=== PATIENT | male | born 1965 | race African-American/Black ===

== ENCOUNTER 2017-07-24 14:31 | Emergency (ER) | payer SELFPAY ==
[~2017-07-24] VITALS: Ht 193 cm; Wt 105.2 kg
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
[2017-07-24] MEDS ORDERED: NAPROXEN 500 MG TABLET PO ONE (15:30)
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
--- NOTE | 2017-07-24 16:05 | RAD ---
Venous Doppler of the left lower extremity Indication: Patient fell left lateral hip 5 weeks ago. Severe pain. Technique: Color Doppler, grayscale and spectral waveform ultrasound images of the left lower extremity obtained. Comparison: None Findings: The interrogated left lower extremity veins are compressible and demonstrate normal respiratory variation and response to augmentation. 2.9 x 1.4 x 2.3 cm anechoic lesion within popliteal fossa likely popliteal fossa cyst. Impression: 1. No sonographic evidence of DVT of the interrogated left lower extremity veins. 2. 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
[2017-07-24 16:30] VITALS: BP 141/77
--- NOTE | 2017-07-24 16:52 | RAD ---
CT of the pelvis without contrast, 07/24/2017: History: Hip pain, avascular necrosis Noncontrast scans were obtained with multiplanar reconstructions produced. There is a prominent area of decreased density in the left femoral head superiorly with an irregular sclerotic rim. The appearance is typical of chronic avascular necrosis. No overlying cortical fracture is seen. A smaller focus of avascular necrosis is also noted in the right femoral head. There is only mild spurring at the hip joints. The joint spaces are well preserved. 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 No pelvic fracture is identified. IMPRESSION: 1. 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 2. No acute bony abnormality is detected. PQRS Compliance Statement: One or more of the following individualized dose reduction techniques were utilized for this examination: 1. Automated exposure control 2. Adjustment of the mA and/or kV according to patient size 3. Use of iterative reconstruction technique
[2017-07-24] MEDS ORDERED: NAPR500T3 PO (17:01)
== END 2017-07-24 17:06 | disposition home or self-care (01) ==
LOC: ER 14:31
DX: M87.021 Idiopathic aseptic necrosis of right humerus (principal); I10 Essential (primary) hypertension; E78.00 Pure hypercholesterolemia, unspecified; Z88.0 Allergy status to penicillin
CPT/HCPCS: 72192; 73502; 73552; 93971; 99284-25

== ENCOUNTER 2018-05-28 01:19 | Emergency (ER) | payer SELFPAY | END 2018-05-28 05:24 | disposition home or self-care (01) | LOC: ER 01:19 | DX: F10.129 Alcohol abuse with intoxication, unspecified (principal); E78.00 Pure hypercholesterolemia, unspecified; I10 Essential (primary) hypertension; F17.210 Nicotine dependence, cigarettes, uncomplicated; Z88.0 Allergy status to penicillin | CPT/HCPCS: 99283 ==